=== PATIENT | male | born 1955 | race Caucasian/White ===

== ENCOUNTER → 2023-03-08 | Day surgery (SDC) | payer MEDICARE, MEDICAID ==
[~2023-03-08] VITALS: Ht 170.2 cm; Wt 127.0 kg
[~2023-03-08] MED LIST: ACETAMINOPHEN 325MG TABLET PO PRN; ASPI-1497 PO; ATOR10TA69 PO; ATROPINE SULFATE 1MG/10ML SYR IV PRN; FENTANYL CITRATE/PF 50MCG/ML 2ML VIAL ONE; HEPARIN 1000 UNITS/ML 10ML ONE; IODIXANOL 320MG/ML 100 ML BOTTLE IV ONE; LIDOCAINE HCL 1% 20ML VIAL (Pyxis) INJ ONE; LISI40TA13 PO; MIDAZOLAM HCL 2 MG/2 ML VIAL ONE; MORPHINE SULFATE 2 MG/ML CPJ (NOT FOR IM USE) IV PRN; NALOXONE HCL 0.4MG/ML VIAL IV PRN; ONDANSETRON HCL 4MG/2ML INJ IV PRN
== END | disposition home or self-care (01) ==
LOC: CCL 09:00
PROVIDERS: ATTEND Specialist
DX: I25.10 Atherosclerotic heart disease of native coronary artery without angina pectoris (principal); I25.2 Old myocardial infarction; I10 Essential (primary) hypertension; E78.5 Hyperlipidemia, unspecified; E66.9 Obesity, unspecified; Z79.899 Other long term (current) drug therapy; Z98.890 Other specified postprocedural states
CPT/HCPCS: 93458; J3010; Q9967; J1644 ×2; J3490; J2250; Z7610 ×8; 99152; G0500